=== PATIENT | male | born 1995 | race Caucasian/White ===

== ENCOUNTER 2016-11-06 11:58 | Emergency (ER) | payer MEDICARE, OTHER ==
[2016-11-06 12:01] VITALS: BMI 17.2
--- NOTE | 2016-11-06 12:59 | ED PDOC ---
Arrival/HPI - General Chief Complaint: GI Problem Time Seen by Provider: 11/06/16 12:08 Historian: Patient, Family - History of Present Illness Narrative History of Present Illness (Text): 11/06/16 12:53 Patient is a 21 year old male whose past medical history includes Autism and blindness who presents to the emergency department with abdominal pain that began today. Mother states the patient has had issues with constipation since , but has never complained of pain. She states she has been giving Miralax for his bowel movements and noticed they have been soft/loose. Last bowel movement was today which she reports was very little. She reports patient had been constipated last week and had large hard bowel movement. He reports last week prior to bowel movement he had similar pain, imprved after he moved his bowels. No fever, no nausea. He has been eating without difficulty. Denies urinary symptoms. PMD: Dr. Mccabe 11/06/16 17:45 Time/Duration: 24 hours Symptom Onset: Sudden Symptom Course: Unchanged Modifying Factors (Text): None Past Medical History - Provider Review Nursing Documentation Reviewed: Yes - Infectious Disease Hx of Infectious Diseases: None - Cardiac Hx Cardiac Disorders: No Hx Angina: No Hx Cardiac Arrhythmia: No Hx Circulatory Problems: No Hx Congestive Heart Failure: No Hx Heart Murmur: No Hx Heart Transplant: No Hx Hypertension: No Hx Internal Defibrillator: No Hx Mitral Valve Prolapse: No Hx Pacemaker: No Hx Peripheral Edema: No Hx Peripheral Vascular Disease: No - Pulmonary Hx Respiratory Disorders: Yes Hx Asthma: No Hx Bronchitis: No Hx Chronic Obstructive Pulmonary Disease (COPD): No Hx Emphysema: No Hx Pneumonia: No Hx Respiratory Aspiration: No Hx Respiratory Tract Infection: No Hx Sleep Apnea: Yes Hx Tuberculosis: No - Neurological Hx Neurological Disorder: Yes (Seizure) Hx Alzheimer's Disease: No HX Cerebrovascular Accident: No Hx Dementia: No Hx Dizziness: No Hx Meningitis: No Hx Migraine: No Hx Parkinson's Disease: No Hx Seizures: Yes Hx Transient Ischemic Attacks (TIA): No - HEENT Hx HEENT Disorder: Yes (blind) Hx Blind: Yes Hx Cataracts: No Hx Deafness: No Hx Difficulty Chewing: No Hx Epistaxis: No Hx Glaucoma: No Hx Macular Degeneration: No - Renal Hx Renal Disorder: No Hx Dialysis: No Hx Kidney Stones: No Hx Neurogenic Bladder: No Hx Pyelonephritis: No Hx Renal Cancer: No Hx Renal Failure: No - Endocrine/Metabolic Hx Endocrine Disorders: No Hx Adrenal Cancer: No Hx Diabetes Insipidus: No Hx Diabetes Mellitus Type 1: No Hx Diabetes Mellitus Type 2: No Hx Hyperthyroidism: No Hx Hypothyroidism: No Hx Systemic Lupus Erythematosus: No - Hematological/Oncological Hx Blood Disorders: No Hx AIDS: No Hx Anemia: No Hx Cancer: No Hx Chemotherapy: No Hx Cirrhosis: No Hx Hemophilia: No Hx Hepatitis A: No Hx Hepatitis B: No Hx Metastasis: No Hx Shingles: No Hx Sickle Cell Disease: No Hx Unexplained Bleeding: No - Integumentary Hx Dermatological Disorder: No Hx Basal Cell Carcinoma: No Hx Eczema: No Hx Melanoma: No Hx Psoriasis: No Hx Squamous Cell Carcinoma: No - Musculoskeletal/Rheumatological Hx Musculoskeletal Disorders: No Hx Arthritis: No Hx Back Pain: No Hx Degenerative Joint Disease: No Hx Falls: No Hx Fractures: No Hx Gout: No Hx Herniated Disk: No Hx Myasthenia Gravis: No Hx Osteoarthritis: No Hx Osteomyelitis: No Hx Osteoporosis: No Hx Rhabdomyolysis: No Hx Spinal Stenosis: No Hx Unsteady Gait: No - Gastrointestinal Hx Gastrointestinal Disorders: Yes Hx Colostomy: No Hx Crohn's Disease: No Hx Diverticulitis: No Hx Gall Bladder Disease: No Hx Gastroesophageal Reflux: No Hx Gastrointestinal Ulcer: No Hx Ileostomy: No Hx Liver Failure: No Hx Pancreatitis: No HX Swallowing Problems: No Other/Comment: As per patient's mother, patient had about 6 inches of intestine removed as an . - Genitourinary/Gynecological Hx Genitourinary Disorders: No Hx Hematuria: No Hx Incontinence: No Hx Prostate Problems: No Hx Sexually Transmitted Diseases: No Hx Urinary Tract Infection: No - Psychiatric Hx Psychophysiologic Disorder: Yes (Autism) Hx Anxiety: Yes Hx Bipolar Disorder: No Hx Depression: No Hx Emotional Abuse: No Hx Hallucinations: No Hx Panic Disorder: No Hx Post Traumatic Stress Disorder: No Hx Psychosis: No Hx Physical Abuse: No Hx Schizophrenia: No Hx Sexual Abuse: No Hx Substance Use: No - Surgical History Hx Amputation: No Hx Appendectomy: No Hx Cardiac Catheterization: No Hx Cholecystectomy: No Hx Coronary Stent: No Hx Gastric Bypass Surgery: No Hx Hysterectomy: No Hx Joint Replacement: No Hx Kidney Transplant: No Hx Liver Transplant: No Hx Mastectomy: No Hx Musculoskeletal Surgery: No Hx Open Heart Surgery: No Hx Orthopedic Surgery: No Hx Splenectomy: No Hx Valve Replacement: No Other/Comment: born 1lb 9oz, hosptalized for 5 months - Anesthesia Hx Anesthesia: Yes Hx Anesthesia Reactions: No Hx Malignant Hyperthermia: No - Suicidal Assessment Feels Threatened In Home Enviroment: No Family/Social History - Physician Review Nursing Documentation Reviewed: Yes Family/Social History: Unknown Family HX Smoking Status: Never Smoked Hx Alcohol Use: No Hx Substance Use: No Allergies/Home Meds Allergies/Adverse Reactions: Allergies No Known Allergies Allergy (Verified 11/06/16 12:01) Home Medications: Home Meds Medication Instructions Recorded Confirmed Lamotrigine [Lamotrigine] 100 mg PO BID 04/01/16 11/06/16 Review of Systems - Review of Systems Constitutional: absent: Fevers ENT: absent: Hearing Changes Respiratory: absent: SOB Cardiovascular: absent: Chest Pain Gastrointestinal: Abdominal Pain, Stool Changes, Constipation. absent: Diarrhea , Nausea, Vomiting, Appetite Changes Genitourinary Male: absent: Dysuria, Urinary Output Changes Musculoskeletal: absent: Back Pain Skin: absent: Rash Neurological: absent: Headache, Dizziness Endocrine: absent: Diaphoresis Psychiatric: absent: Depression Physical Exam - Physical Exam Narrative Physical Exam (Text): Head: Atraumatic. No lesions, no bony tenderness. Eyes: Patient is blind, at baseline, no erythema or discharge. ENT: Mucous membranes are moist and intact. Oropharynx is clear and symmetric. Neck: Supple. No meningeal signs. Cardiovascular: Regular rate. Regular rhythm. No murmurs, rubs, or gallops. Distal pulses are 2+ and symmetric. Pulmonary/Chest: No evidence of respiratory distress. Clear to auscultation bilaterally. No wheezing, rales or rhonchi. Abdominal: Firm, tense abdomen periumbilical region, there is large scar from prior surgery with no erythema or edema or bleeding or discharge, there are normoactive bowel sounds. No li's sign, no rebound or guarding. MILD pain around scar. Rectal: no gross bleeding, no stool palpated with digital exam Back: No CVA tenderness. Extremities: No edema. No cyanosis. No clubbing. Full range of motion in all extremities. No calf tenderness. Skin: Skin is warm and dry. No petechiae. No purpura. Neurological: Alert. Follows commands. At baseline motor and sensory exam as described by mother at bedside. Psychiatric: At baseline mental status, follows commands. Vital Signs Reviewed: Yes Vital Signs Temp Pulse Resp BP Pulse Ox 11/06/16 15:00 96 H 18 120/70 100 11/06/16 14:55 98.7 F 11/06/16 12:04 98.5 F 120 H 19 150/89 100 Temperature: Afebrile Appearance: Positive for: Well-Appearing, Non-Toxic Pain Distress: Mild Medical Decision Making ED Course and Treatment: Differential Diagnosis included but are not limited to: constipation, r/o bowel obstruction, r/o colitis Plan: Will obtain CT of the Abdomen/Pelvis and check labs. Progress Notes: Patient with history of autism, patient present with mother and father. He appears comfortable and nontoxic appearing on initial exam, minimal pain noted. He is afebrile and cv stable. Neurologically at baseline. Based on prior abdominal surgical history, ct abdomen ordered: CT Abdomen and Pelvis without oral or IV contrast Sole Layer Hand : Rebecca Pryor MD Report Date : 11/06/2016 14:50:02 Impression: Markedly limited study as above. Free air cannot be excluded due to the limitations of the study. Air at the level of the right upper quadrant can not be localized to reside within a bowel loop, however there is much artifact and motion at this level. Severe retained fecal material at the rectosigmoid colon. Distended urinary bladder appears otherwise grossly unremarkable. Patient's case reviewed with PMD Dr. Mccabe and we consulted Dr. Hough, gastroenterology. Family and patient updated of ct findings and treatment plan. GI attempted manual disimpaction unsuccessful. Patient urinated and states pain significantly improved. Patient was reexamined at 17:30 with mother and father present. Patient feels better. He states pain has improved. CT scan has been reviewed by gastroeneterologist. Attempt at manual fecal disimpaction unsuccessful. Recommendation is for Miralax. As he has no pain, no nausea, and no fever, patient's mother and father wish to take him home and try Miralax at home. He understands indications to return to ER and follow up with gastroenterology. PMD will be updated and patient will be discharged. 11/06/16 17:47 - Lab Interpretations Lab Results: 11/06/16 13:37 11/06/16 13:37 Lab Results 11/06/16 13:37: Sodium 138, Potassium 4.3, Chloride 104, Carbon Dioxide 20 L, Anion Gap 18, BUN 12, Creatinine 0.8, Est GFR ( Amer) > 60, Est GFR (Non- Af Amer) > 60, Random Glucose 114 H, Calcium 9.9, Total Bilirubin 0.9, AST 29, ALT 25, Alkaline Phosphatase 94, Total Protein 7.9, Albumin 5.1 H, Globulin 2.9 , Albumin/Globulin Ratio 1.8 11/06/16 13:37: PT 11.7, INR 1.08, APTT 29.4 11/06/16 13:37: WBC 10.6 D, RBC 5.46, Hgb 15.1, Hct 43.2, MCV 79.1 L, MCH 27.7 , MCHC 35.0, RDW 12.6, Plt Count 317, MPV 10.3, Gran % 71.2 H, Lymph % (Auto) 20.7 L, Clarke % (Auto) 7.0 H, Eos % (Auto) 0.8 L, Baso % (Auto) 0.3, Gran # 7.57 H, Lymph # 2.2, Clarke # 0.7 H, Eos # 0.1, Baso # 0.03 - RAD Interpretation Radiology Orders: 11/06/16 12:48 ABD & PELVIS W/O PO OR IV CONT [CT] Stat - Medication Orders Current Medication Orders: Discontinued Medications Lidocaine HCl (Xylocaine 2% (Uro-Jet)) 0 ea TOP ONCE ONE Stop: 11/06/16 15:48 Last Admin: 11/06/16 16:02 Dose: 1 applic Comments: Given to Dr. Shay to use Polyethylene Glycol (Miralax) 17 gm PO STAT STA Stop: 11/06/16 16:58 Last Admin: 11/06/16 17:35 Dose: 17 gm - Scribe Statement The provider has reviewed the documentation as recorded by the Holly Tomlin Provider Scribe Attestation: All medical record entries made by the Scribe were at my direction and personally dictated by me. I have reviewed the chart and agree that the record accurately reflects my personal performance of the history, physical exam, medical decision making, and the department course for this patient. I have also personally directed, reviewed, and agree with the discharge instructions and disposition. Disposition/Present on Arrival - Present on Arrival Any Indicators Present on Arrival: No History of DVT/PE: No History of Uncontrolled Diabetes: No Urinary Catheter: No History of Decub. Ulcer: No History Surgical Site Infection Following: None - Disposition Have Diagnosis and Disposition been Completed?: Yes Diagnosis: Constipation, Abdominal pain Disposition: HOME/ ROUTINE Disposition Time: 17:00 Patient Plan: Discharge Patient Problems: Current Active Problems Problem Status Onset Constipation Acute Condition: GOOD
[2016-11-06 13:37] LABS: ADD MANUAL DIFF? NO
[2016-11-06 13:44] LABS: BASO # 0.03 K/mm3 (0.0-2.0); BASO % 0.3 % (0.0-3.0); EOS # 0.1 (0.0-0.7); EOS % 0.8 % (1.5-5.0); GRAN # 7.57 (1.4-6.5); GRAN % 71.2 % (50.0-68.0); HEMATOCRIT 43.2 % (42.0-52.0); LYMPH # 2.2 (1.2-3.4); LYMPH % 20.7 % (22.0-35.0); MEAN CELL VOLUME 79.1 fL (80.0-105.0); MEAN CORPUSCULAR HEMOGLOBIN 27.7 pg (25.0-35.0); MEAN PLATELET VOLUME 10.3 fl (7.0-11.0); MONO # 0.7 (0.1-0.6); PLATELET COUNT 317 10^3/uL (120.0-450.0); RED CELL DISTRIBUTION WIDTH 12.6 % (11.5-14.5); WHITE BLOOD COUNT 10.6 10^3/ul (4.5-11.0)
[2016-11-06 13:53] LABS: INR 1.08 (0.93-1.08); PARTIAL THROMBOPLASTIN TIME 29.4 Seconds (23.7-30.8)
[2016-11-06 13:55] LABS: ALB/GLOB RATIO 1.8 (1.1-1.8); ALKALINE PHOSPHATASE 94 U/L (38-133); ALT/SGPT 25 U/L (7-56); AST/SGOT 29 U/L (15-59); BILIRUBIN,TOTAL 0.9 mg/dL (0.2-1.3); BLOOD UREA NITROGEN 12 mg/dL (7-21); CALCIUM 9.9 mg/dL (8.4-10.5); CARBON DIOXIDE 20 mmol/L (21-33); CHLORIDE 104 mmol/L (98-107); GFR AFRICAN-AMERICAN > 60; GLUCOSE,RANDOM 114 mg/dL (70-110); POTASSIUM 4.3 mmol/L (3.6-5.0); SODIUM 138 mmol/L (132-148); TOTAL PROTEIN 7.9 g/dL (5.8-8.3)
--- NOTE | 2016-11-06 14:51 | CT ---
CT abdomen and pelvis without oral or IV contrast Indication:diffuse abdominal pain, hx of perf Technique: Contiguous axial images of the abdomen and pelvis. Oral contrast was administered. No IV contrast given. Coronal and Sagittal reformats generated and reviewed. This CT exam was performed using 1 or more of the following dose reduction techniques: Automated exposure control, adjustment of the MAA and/or kV according to patient size, and/or use of iterative reconstruction technique. Radiation dose: Total exam DLP = 204.89 MGy-cm. Comparison: None available. Findings: Examination is markedly limited by patient motion, streak artifact, as well as paucity of intra-abdominal and intrapelvic fat. No visible consolidation, pleural effusion, or pneumothorax. The pancreas is essentially not visualized, obscured by artifact. Decompressed urinary bladder cannot be adequately visualized. The markedly limited visualized portions of the noncontrast liver, spleen, kidneys, and adrenal glands appear grossly unremarkable. Lack of oral contrast limits evaluation for bowel pathology. No dilated loops of bowel are identified to suggest obstruction. Free air cannot be excluded due to the limitations of the study. Air at the level of the right upper quadrant can not be localized to reside within a bowel loop, however there is much of artifact and motion at this level. Severe retained fecal material at the rectosigmoid colon. The appendix is not identified. No secondary signs of acute appendicitis. The urinary bladder appears distended, otherwise grossly unremarkable. . Mild degenerative changes. Schmorl's nodes noted at several levels. Impression: Markedly limited study as above. Free air cannot be excluded due to the limitations of the study. Air at the level of the right upper quadrant can not be localized to reside within a bowel loop, however there is much artifact and motion at this level. Severe retained fecal material at the rectosigmoid colon. Distended urinary bladder appears otherwise grossly unremarkable. Additional findings as above. The above findings and limitations of this study were discussed with Dr. Shay on 11/06/16 at 2:44 p.m..
[2016-11-06 14:55] VITALS: TEMP 98.7
[2016-11-06 15:00] VITALS: RESP 18
[2016-11-06] MEDS ORDERED: Lidocaine 2% Jelly (Uro-Jet) TOP ONE (15:47)
[2016-11-06] MEDS ORDERED: POLYETHYLENE GLYCOL 3350 17 GM/Dose PACKET PO STA (16:57)
[2016-11-06 17:48] VITALS: BP 128/72; PULSE 90; O2SAT 98
--- NOTE | 2016-11-06 21:04 | CON ---
DATE: 11/06/2016 This patient was seen in the Emergency Room. This 21-year-old patient with a past medical history of autism and blindness presented to the Emergency Room with complaints of abdominal pain. The patient has a history of chronic constipation and the patient was given MiraLax on a p.r.n. basis for kaleb jarvis. The patient was constipated more than close to more than a week. The patient now presents w ith increased abdominal pain, brought by the family to the Emergency Room. A GI consult was requeste d to evaluate it. PAST MEDICAL HISTORY: Other past medical history is significant for history of pediatric surgery don e for bowel perforation then also had a bowel resection done in the past, bilaterally blind. The pat radha has disorder. ALLERGIES: He is not allergic to any medication. SOCIAL HISTORY: Denies smoking. No alcohol. FAMILY HISTORY: Otherwise noncontributory. REVIEW OF SYSTEMS: Limited. Mainly the history from the parents per the family who was at bedside. PHYSICAL EXAMINATION: GENERAL: The patient is lying on the bed, not in acute distress. VITAL SIGNS: Temperature is 98.7, blood pressure 120/70, respirations 18, and O2 saturation 100%. HEENT: The patient has bilateral blindness. . Blindness. NECK: Supple. HEART: S1, S2 heard. LUNGS: Bilateral air entry present. ABDOMEN: Soft. There was a transverse scar present. The abdomen appears to be . There was st iffness of the abdominal wall noticed, . But no tenderness I could demonstrate. EXTREMITIES: No cyanosis, no clubbing. LABORATORY DATA: Hemoglobin 15.1, hematocrit 43.2, WBC 10.6, platelets 317. Chemistry is essentiall y unremarkable otherwise. The CT scan of the abdomen and pelvis done without contrast was reviewed a nd there is a large amount of stool present in the rectal area and sigmoid. There is moderately dist ended bladder noticed. IMPRESSION: This 21-year-old patient with a history of autism, blindness, and now admitted with abdo iris pain, constipation. Rectal examination done revealed an empty rectum. Probably the stool is h igher up. I would recommend at this point starting the patient on MiraLax 17 grams q. 4-6 hourly for 24 hours until he has good bowel movements. We will continue to closely follow up his care and sugg est further management based on the course. Since the patient was symptomatic with abdominal pain an d it is reasonable to monitor the patient until the bowel clearance occurs and discussed with the [facility] physician at length. Thank you very much for allowing us to participate in the care of the patient. Frank Hough MD cc: [id number] TT: 11/06/2016 21:04:21 Confirmation # [id number] Dictation # [id number] mn
== END 2016-11-06 17:50 | disposition home or self-care (01) ==
LOC: ED 11:58 → UNDOADMOB 14:45 → ERH 14:45 → ED 17:50
DX: K59.00 Constipation, unspecified (principal); R10.9 Unspecified abdominal pain